=== PATIENT | male | born 1980 | race Caucasian/White ===

== ENCOUNTER 2019-03-13 08:19 | Outpatient (RCR) | payer BC ==
[2019-03-14 17:49] LABS: SEMEN VOLUME 2.3 ML (1.5-5.0)
== END 2019-06-11 | disposition home or self-care (01) ==
LOC: LAB 08:19
PROVIDERS: ATTEND Urology
DX: E29.1 Testicular hypofunction (principal); N46.9 Male infertility, unspecified
CPT/HCPCS: 89320